=== PATIENT | male | born 1960 | race African-American/Black ===

== ENCOUNTER 2017-01-25 07:52 | Emergency (ER) | payer MEDICAID ==
[~2017-01-25] VITALS: Ht 177.8 cm; Wt 90.0 kg
[~2017-01-25 07:52] MED LIST: ATEN50TA PO; LISI-604 PO; RISP4 PO
[2017-01-25] MEDS ORDERED: PREDNISONE 20MG TABLET PO ONE (08:15)
[2017-01-25 08:20] LABS: BASOPHILS % 0.8 % (0.0-2.0); EOSINOPHILS % 0.8 % (0.0-5.0); HEMATOCRIT. 49.2 % (42.0-52.0); HEMOGLOBIN. 16.3 g/dL (14.0-18.0); MEAN CORPUSCULAR HEMOGLOBIN 30.1 pg (28.0-32.0); MEAN CORPUSCULAR HGB CONC 33.2 g/dL (31.0-37.0); MEAN CORPUSCULAR VOLUME 90.8 fL (80.0-94.0); NEUTROPHILS % 71.4 % (40.0-76.0); PLATELET 240 x1000/uL (130-400); RED BLOOD CELL COUNT 5.42 mill/uL (4.7-6.1); WHITE BLOOD COUNT 9.5 x1000/uL (4.5-11.0)
[2017-01-25 08:26] LABS: CHLORIDE 100 mEq/L (98-107); INDEX HEMOLYSI 1 (1-3); INDEX ICTERIC 1 (1-4); INDEX LIPEMIC 1 (1-3)
[2017-01-25 08:30] LABS: PARTIAL THROMBOPLASTIN TIME 25.3 sec (24.0-34.0); PROTHROMBIN TIME 10.7 sec
[2017-01-25 08:36] LABS: ALANINE AMINOTRANSFERASE 33 IU/L (13-61); ALBUMIN 2.9 g/dL (3.4-5.0); ANION GAP 14; CARBON DIOXIDE 28 mEq/L (21-32); NT PRO B-TYPE NATRIURETIC PEP 463 pg/mL (5-125); UREA NITROGEN BLOOD 13 mg/dL (7-21); eGFR > 60 mL/min (>60)
[2017-01-25 08:52] LABS: BG BASE EXCESS -0.9 mmol/L (-2.0-2.0); BG CARBOXYHEMOGLOBIN 1.7 % (0.5-1.5); BG FRACTION INSPIRED OXYGEN 28; BG HCO3 ACT 23.3 mmol/L (22.0-26.0); BG METHEMOGLOBIN 0.1 % (0.0-1.5); BG OXYGEN SATURATION 95.9 % (92.0-98.5); BG OXYHEMOGLOBIN 94.2 % (94.0-97.0); BG PCO2 37.6 mmHg (35.0-45.0); BG PO2 81.1 mmHg (75.0-100.0); BG SAMPLE SITE RIGHT BRACHIAL; BG TOTAL HEMOGLOBIN 16.5 g/dL (12.0-18.0); BG VENT MODE NASAL CANNULA
[2017-01-25 10:43] VITALS: BP 144/86
== END 2017-01-25 10:48 | disposition home or self-care (01) ==
LOC: ER 07:58
DX: J18.9 Pneumonia, unspecified organism (principal); I10 Essential (primary) hypertension; E11.9 Type 2 diabetes mellitus without complications; F41.9 Anxiety disorder, unspecified; F17.211 Nicotine dependence, cigarettes, in remission
CPT/HCPCS: 36415; 36600; 71010; 80053; 82375; 82805; 83880; 85025; 85610; 85730; 99285; J7512; Z7610

== ENCOUNTER 2018-01-03 01:23 | Inpatient (IN) | payer SELFPAY ==
[~2018-01-03] VITALS: Ht 180.3 cm; Wt 81.6 kg
[2018-01-03] MEDS ORDERED: METHYLPREDNISOLONE SOD SUCC 125 MG/2 ML VIAL IV STA (01:42)
[2018-01-03] MEDS ORDERED: ALBUTEROL (0.083%) 2.5MG/3ML NEB HHN STA (01:42)
[2018-01-03] MEDS ORDERED: IPRATROPIUM BROMIDE (0.02%) 0.5MG/2.5ML NEB HHN STA (01:42)
[2018-01-03] MEDS ORDERED: MAGNESIUM 2 G PREMIX 50 ML IV ONE (01:45)
[2018-01-03] MEDS ORDERED: LEVOFLOXACIN 750MG PREMIX 150 ML IV ONE (01:45)
[2018-01-03] MEDS ORDERED: ASPIRIN 81MG TABLET PO ONE (01:45)
[2018-01-03] MEDS ORDERED: NITROGLYCERIN OINT 1GM/INCH UDPKT TD ONE (01:45)
[2018-01-03] MEDS ORDERED: ACETAMINOPHEN 325MG TABLET PO ONE (02:15)
[2018-01-03 02:43] LABS: BASOPHILS % 0.5 % (0.0-2.0); EOSINOPHILS % 2.6 % (0.0-5.0); HEMATOCRIT. 51.7 % (42.0-52.0); HEMOGLOBIN. 17.1 g/dL (14.0-18.0); LYMPHOCYTES % 12.2 % (20.0-50.0); MEAN CORPUSCULAR VOLUME 87.6 fL (80.0-94.0); MEAN PLATELET VOLUME 8.6 fl (7.4-10.4); MONOCYTES % 13.8 % (2.0-8.0); NEUTROPHILS % 70.9 % (40.0-76.0); PLATELET 172 x1000/uL (130-400); RED CELL DISTRIBUTION WIDTH 14.7 % (11.6-14.6)
[2018-01-03 02:46] LABS: PROTHROMBIN TIME 10.8 sec (9.4-11.6)
[2018-01-03 02:49] LABS: CHLORIDE 105 mEq/L (98-107)
[2018-01-03 02:53] LABS: ETHANOL BLOOD < 10 mg/dL; TROPONIN I 0.04 ng/mL (0.00-0.04)
[2018-01-03] MEDS ORDERED: CLONIDINE 0.1MG TABLET PO PRN (09:00)
[2018-01-03] MEDS ORDERED: ZOLPIDEM TARTRATE 5MG TABLET PO PRN (09:00)
[2018-01-03] MEDS ORDERED: KETOROLAC 15MG/ML VIAL IV PRN (09:00)
[2018-01-03] MEDS ORDERED: LORAZEPAM 0.5MG TABLET PO PRN (09:00)
[2018-01-03] MEDS ORDERED: MAGNESIUM/ALUMINUM HYDROXIDE/SIMETHICONE 30ML UDC PO PRN (09:00)
[2018-01-03] MEDS ORDERED: DOCUSATE SODIUM 100MG CAPSULE PO PRN (09:00)
[2018-01-03] MEDS ORDERED: ACETAMINOPHEN 325MG TABLET PO PRN (09:00)
[2018-01-03] MEDS ORDERED: ONDANSETRON HCL 4MG/2ML VIAL IV PRN (09:00)
[2018-01-03] MEDS ORDERED: GUAIFENESIN 200MG/10ML SUGAR FREE UDC PO PRN (09:00)
[2018-01-03] MEDS ORDERED: NITROGLYCERIN 0.4MG TABLET SL SL PRN (09:00)
[2018-01-03] MEDS ORDERED: NA PHOS,M-B/NA PHOS,DI-BA ENEMA 118ML PR PRN (09:00)
[2018-01-03] MEDS ORDERED: IPRATROPIUM/ALBUTEROL 0.5-3(2.5)MG/3ML NEB INH PRN ×2 (09:00→12:15)
[2018-01-03] MEDS ORDERED: DIPHENHYDRAMINE 50MG/ML VIAL IV PRN (09:00)
[2018-01-03] MEDS ORDERED: GUAIFENESIN/DM 600MG/30MG ER TAB 12HR PO NR (13:00)
[2018-01-03] MEDS ORDERED: IPRATROPIUM/ALBUTEROL 0.5-3(2.5)MG/3ML NEB INH NR (13:00)
[2018-01-03 14:20] LABS: TROPONIN I 0.04 ng/mL (0.00-0.04)
[2018-01-03 14:21] LABS: CREATINE KINASE MB FRACTION 5.1 ng/mL (0.5-3.6)
[2018-01-03 16:00] VITALS: BP 149/100
[2018-01-03] MEDS ORDERED: ENOXAPARIN 40MG/0.4ML SYR SUBCUT SCH (17:00)
[2018-01-03] MEDS: METHYLPREDNISOLONE SOD SUCC 125 MG/2 ML VIAL IV SCH (17:49)
[2018-01-03] MEDS: GUAIFENESIN/DM 600MG/30MG ER TAB 12HR PO SCH (17:50)
[2018-01-03] MEDS: FAMOTIDINE 20MG/2ML VIAL IV SCH (20:18)
[2018-01-04] VITALS: BP 156/84
[2018-01-04 00:03] LABS: CREATINE KINASE MB FRACTION 5.1 ng/mL (0.5-3.6); TROPONIN I 0.07 ng/mL (0.00-0.04)
[2018-01-04] MEDS: METHYLPREDNISOLONE SOD SUCC 125 MG/2 ML VIAL IV SCH ×2 (03:36→09:11)
[2018-01-04 04:00] VITALS: BP 132/84
[2018-01-04] MEDS ORDERED: LEVOFLOXACIN 500MG PREMIX 100 ML IV SCH (06:00)
[2018-01-04] MEDS: GUAIFENESIN/DM 600MG/30MG ER TAB 12HR PO SCH (06:51)
[2018-01-04 08:00] VITALS: BP 137/84
[2018-01-04] MEDS: ASPIRIN 325MG EC TABLET PO SCH ×2 (09:11→09:12)
[2018-01-04] MEDS: FAMOTIDINE 20MG/2ML VIAL IV SCH (09:11)
[2018-01-04 12:00] VITALS: BP 143/72
[2018-01-04] MEDS ORDERED: INSULIN LISPRO 100 UNITS/ML SUBCUT NR (13:45)
[2018-01-04 13:54] VITALS: BP 137/81
== END 2018-01-04 14:55 | disposition home or self-care (01) | DRG 140 ==
LOC: ER 01:23 → 5WST 03:38 → EDBEDREQTM 03:44 → EDBEDREQ 03:44 → ENRESERV 14:12 → 5WST 15:53
PROVIDERS: ADMIT Internal Medicine; ATTEND Internal Medicine
DX: J44.0 Chronic obstructive pulmonary disease with (acute) lower respiratory infection (principal); J18.9 Pneumonia, unspecified organism; J44.1 Chronic obstructive pulmonary disease with (acute) exacerbation; E11.65 Type 2 diabetes mellitus with hyperglycemia; F17.200 Nicotine dependence, unspecified, uncomplicated; I10 Essential (primary) hypertension; Z79.899 Other long term (current) drug therapy
CPT/HCPCS: 36415; 71045; 80053; 80061; 82550; 82553; 82962; 83036; 83605; 83880; 84484; 85025; 85610; 87040; 87804; 93005; 93970; 94640; 96365; 96366; 96367; 96375; 99285; G0482; J1650; J1815; J1885; J1956; J2930; J3475; J3490; J7050; J7611; J7620

== ENCOUNTER 2018-05-29 02:37 | Emergency (ER) | payer MEDICAID ==
[~2018-05-29] VITALS: Ht 177.8 cm; Wt 77.1 kg
[2018-05-29] MEDS ORDERED: MAGNESIUM/ALUMINUM HYDROXIDE/SIMETHICONE 30ML UDC PO STA (06:42)
[2018-05-29] MEDS ORDERED: VISCOUS LIDOCAINE 2% 15 ML UDC PO STA (06:42)
[2018-05-29] MEDS ORDERED: FAMOTIDINE 20MG/2ML VIAL IV STA (06:42)
[2018-05-29] MEDS ORDERED: SODIUM CHLORIDE 0.9% 1,000 ML IV ONE (06:42)
[2018-05-29 08:21] LABS: BASOPHILS % 0.7 % (0.0-2.0); EOSINOPHILS % 0.9 % (0.0-5.0); LYMPHOCYTES % 23.6 % (20.0-50.0); MEAN CORPUSCULAR HEMOGLOBIN 30.7 pg (28.0-32.0); MEAN CORPUSCULAR VOLUME 90.4 fL (80.0-94.0); MONOCYTES % 11.4 % (2.0-8.0); NEUTROPHILS % 63.4 % (40.0-76.0); PLATELET 195 x1000/uL (130-400); RED BLOOD CELL COUNT 6.95 mill/uL (4.7-6.1); RED CELL DISTRIBUTION WIDTH 13.6 % (11.6-14.6)
[2018-05-29 08:23] LABS: CLARITY URINE CLEAR (CLEAR); COLOR URINE YELLOW (YELLOW); KETONES URINE 1+ (NEGATIVE); LEUKOCYTE ESTERASE URINE NEGATIVE (NEGATIVE); NITRITE URINE NEGATIVE (NEGATIVE); OCCULT BLOOD URINE TRACE (NEGATIVE); PROTEIN URINE 4+ (NEGATIVE); SPECIFIC GRAVITY URINE 1.033 (1.005-1.030)
[2018-05-29 08:24] LABS: CHLORIDE 102 mEq/L (98-107); HEMATOCRIT. 62.8 % (42.0-52.0); HEMOGLOBIN. 21.3 g/dL (14.0-18.0)
[2018-05-29 08:26] LABS: INR 1.1; PROTHROMBIN TIME 11.6 sec (9.4-11.6)
[2018-05-29 08:30] LABS: ETHANOL BLOOD < 10 mg/dL
[2018-05-29 08:53] LABS: *AMPHETAMINES SCREEN URINE NEGATIVE (NEGATIVE); *BARBITURATES SCREEN URINE NEGATIVE (NEGATIVE); *BENZODIAZEPINES SCREEN URINE NEGATIVE (NEGATIVE); *COCAINE SCREEN URINE NEGATIVE (NEGATIVE); METHADONE URINE SCREEN NEGATIVE (NEGATIVE)
[2018-05-29 08:54] LABS: CANNABINOID URINE SCREEN PRESUMTIVE POSITIVE (NEGATIVE); OPIATES URINE SCREEN NEGATIVE (NEGATIVE); PHENCYCLIDINE URINE SCREEN NEGATIVE (NEGATIVE)
[2018-05-29 15:18] VITALS: BP 165/92
== END 2018-05-29 15:21 | disposition home or self-care (01) ==
LOC: ER 02:37
DX: R10.9 Unspecified abdominal pain (principal); E11.9 Type 2 diabetes mellitus without complications; I10 Essential (primary) hypertension; Z98.890 Other specified postprocedural states
CPT/HCPCS: 36415; 71045; 74018; 74176; 76705; 80053; 80305; 81003; 83690; 84132; 84484; 85025; 85610; 93005; 96374; 99285; G0482; J3490; J7030; Z7610

== ENCOUNTER 2018-08-08 04:24 | Inpatient (IN) | payer MEDICAID ==
[~2018-08-08] VITALS: Ht 177.8 cm; Wt 79.4 kg
[2018-08-08] MEDS ORDERED: IPRATROPIUM BROMIDE (0.02%) 0.5MG/2.5ML NEB HHN STA (06:10)
[2018-08-08] MEDS ORDERED: METHYLPREDNISOLONE SOD SUCC 125 MG/2 ML VIAL IV STA (06:10)
[2018-08-08] MEDS ORDERED: ALBUTEROL (0.083%) 2.5MG/3ML NEB HHN STA (06:10)
[2018-08-08 07:33] LABS: BASOPHILS % 0.9 % (0.0-2.0); EOSINOPHILS % 1.4 % (0.0-5.0); HEMOGLOBIN. 17.8 g/dL (14.0-18.0); MEAN CORPUSCULAR HEMOGLOBIN 31.5 pg (28.0-32.0); MEAN CORPUSCULAR VOLUME 92.2 fL (80.0-94.0); MEAN PLATELET VOLUME 8.9 fl (7.4-10.4); MONOCYTES % 12.2 % (2.0-8.0); NEUTROPHILS % 58.5 % (40.0-76.0); PLATELET 174 x1000/uL (130-400); RED BLOOD CELL COUNT 5.64 mill/uL (4.7-6.1); RED CELL DISTRIBUTION WIDTH 14.2 % (11.6-14.6)
[2018-08-08 07:41] LABS: INR 1.1; PARTIAL THROMBOPLASTIN TIME 25.4 sec (23.4-31.0); PROTHROMBIN TIME 10.7 sec (9.1-11.1)
[2018-08-08 07:58] LABS: CHLORIDE 106 mEq/L (98-107)
[2018-08-08] MEDS ORDERED: LEVOFLOXACIN 500MG PREMIX 100 ML IV ONE (08:30)
[2018-08-08] MEDS ORDERED: FUROSEMIDE 20MG/2ML VIAL IVP ONE (08:30)
[2018-08-08] MEDS ORDERED: IPRATROPIUM/ALBUTEROL 0.5-3(2.5)MG/3ML NEB HHN PRN (09:15)
[2018-08-08] MEDS ORDERED: DEXTROSE 50% WATER 50ML SYRINGE IV PRN (09:15)
[2018-08-08] MEDS ORDERED: CLONIDINE 0.1MG TABLET PO PRN (09:15)
[2018-08-08] MEDS ORDERED: LEVOFLOXACIN 250MG TABLET PO SCH (11:00)
[2018-08-08] MEDS: INSULIN LISPRO 100 UNITS/ML SUBCUT SCH ×2 (16:16→23:21)
[2018-08-08] MEDS ORDERED: MORPHINE SULFATE 4 MG/ML CPJ (NOT FOR IM USE) IV PRN (19:00)
[2018-08-08] MEDS: METFORMIN HCL 500MG TABLET PO SCH (19:29)
[2018-08-08 21:00] VITALS: BP 162/96
[2018-08-08] MEDS: BLOOD SUGAR DIAGNOSTIC STRIP TEST SCH (21:00)
[2018-08-08] MEDS ORDERED: INSULIN GLARGINE UD 100 UNITS/ML SYR SUBCUT SCH (22:00)
[2018-08-08] MEDS: MONTELUKAST SODIUM 10MG TABLET PO SCH (23:28)
[2018-08-09] VITALS: BP 150/76
[2018-08-09 04:00] VITALS: BP 150/84
[2018-08-09 06:25] LABS: BASOPHILS % 0.1 % (0.0-2.0); EOSINOPHILS % 0.1 % (0.0-5.0); HEMOGLOBIN. 17.1 g/dL (14.0-18.0); LYMPHOCYTES % 9.9 % (20.0-50.0); MEAN CORPUSCULAR HEMOGLOBIN 31.4 pg (28.0-32.0); MEAN PLATELET VOLUME 9.7 fl (7.4-10.4); MONOCYTES % 9.9 % (2.0-8.0); PLATELET 199 x1000/uL (130-400); RED BLOOD CELL COUNT 5.44 mill/uL (4.7-6.1); RED CELL DISTRIBUTION WIDTH 14.2 % (11.6-14.6)
[2018-08-09] MEDS: OMEPRAZOLE 20MG CAPSULE EXTENDED RELEASE PO SCH (06:53)
[2018-08-09] MEDS: INSULIN LISPRO 100 UNITS/ML SUBCUT SCH ×4 (06:55→21:28)
[2018-08-09] MEDS: BLOOD SUGAR DIAGNOSTIC STRIP TEST SCH ×4 (07:14→21:12)
[2018-08-09 07:40] VITALS: BP 134/79
[2018-08-09] MEDS: FUROSEMIDE 40MG/4ML VIAL IVP SCH (08:31)
[2018-08-09] MEDS: METFORMIN HCL 500MG TABLET PO SCH ×2 (08:31→16:56)
[2018-08-09] MEDS: DOCUSATE SODIUM 250MG CAPSULE PO SCH (08:31)
[2018-08-09] MEDS ORDERED: AMLODIPINE 5MG TABLET PO SCH (09:00)
[2018-08-09] MEDS ORDERED: FUROSEMIDE 20MG TABLET PO SCH (09:00)
[2018-08-09 09:38] LABS: CHLORIDE 106 mEq/L (98-107)
[2018-08-09] MEDS: CLOPIDOGREL 75MG TABLET PO SCH (11:53)
[2018-08-09] MEDS: ENOXAPARIN 40MG/0.4ML SYR SUBCUT SCH (11:53)
[2018-08-09 12:00] VITALS: BP 137/69
[2018-08-09] MEDS: INSULIN GLARGINE UD 100 UNITS/ML SYR SUBCUT SCH ×2 (13:37→21:28)
[2018-08-09 16:00] VITALS: BP 137/77
[2018-08-09] MEDS: MONTELUKAST SODIUM 10MG TABLET PO SCH (16:56)
[2018-08-09] MEDS: AMLODIPINE 5MG TABLET PO SCH (16:56)
[2018-08-09 17:27] LABS: CLARITY URINE CLEAR (CLEAR); COLOR URINE YELLOW (YELLOW); KETONES URINE NEGATIVE (NEGATIVE); LEUKOCYTE ESTERASE URINE NEGATIVE (NEGATIVE); NITRITE URINE NEGATIVE (NEGATIVE); OCCULT BLOOD URINE NEGATIVE (NEGATIVE); PH URINE 5.5 (4.5-8.0); PROTEIN URINE 2+ (NEGATIVE); SPECIFIC GRAVITY URINE 1.016 (1.005-1.030)
[2018-08-09 17:37] LABS: ETHANOL BLOOD < 10 mg/dL
[2018-08-09 17:43] LABS: *AMPHETAMINES SCREEN URINE NEGATIVE (NEGATIVE); *BARBITURATES SCREEN URINE NEGATIVE (NEGATIVE); CANNABINOID URINE SCREEN NEGATIVE (NEGATIVE); METHADONE URINE SCREEN NEGATIVE (NEGATIVE)
[2018-08-09 17:45] LABS: *BENZODIAZEPINES SCREEN URINE NEGATIVE (NEGATIVE); *COCAINE SCREEN URINE NEGATIVE (NEGATIVE); OPIATES URINE SCREEN PRESUMTIVE POSITIVE (NEGATIVE); PHENCYCLIDINE URINE SCREEN NEGATIVE (NEGATIVE)
[2018-08-09 17:48] LABS: HDL CHOLESTEROL 51 mg/dL (40-59); LDL CHOLESTEROL 106 mg/dL (5-100); T4 FREE 1.08 ng/dL (0.76-1.46)
[2018-08-09 18:16] LABS: FOLIC ACID (FOLATE) SERUM 13.4 ng/mL (>5.38)
[2018-08-09 19:54] VITALS: BP 129/79
[2018-08-09] MEDS: ATORVASTATIN CALCIUM 40MG TABLET PO SCH (21:24)
[2018-08-10] VITALS: BP 123/80
[2018-08-10 04:00] VITALS: BP 128/74
[2018-08-10 06:46] LABS: BASOPHILS % 0.3 % (0.0-2.0); EOSINOPHILS % 1.3 % (0.0-5.0); HEMOGLOBIN. 17.9 g/dL (14.0-18.0); LYMPHOCYTES % 27.5 % (20.0-50.0); MEAN CORPUSCULAR HEMOGLOBIN 31.3 pg (28.0-32.0); MEAN CORPUSCULAR VOLUME 92.8 fL (80.0-94.0); MEAN PLATELET VOLUME 9.7 fl (7.4-10.4); MONOCYTES % 10.8 % (2.0-8.0); NEUTROPHILS % 60.1 % (40.0-76.0); PLATELET 193 x1000/uL (130-400); RED BLOOD CELL COUNT 5.71 mill/uL (4.7-6.1); RED CELL DISTRIBUTION WIDTH 14.5 % (11.6-14.6)
[2018-08-10] MEDS: BLOOD SUGAR DIAGNOSTIC STRIP TEST SCH ×4 (07:00→21:34)
[2018-08-10] MEDS: INSULIN LISPRO 100 UNITS/ML SUBCUT SCH ×4 (07:00→21:43)
[2018-08-10] MEDS: IPRATROPIUM/ALBUTEROL 0.5-3(2.5)MG/3ML NEB HHN SCH ×4 (07:25→20:53)
[2018-08-10] MEDS: BUDESONIDE 0.5MG/2ML NEB HHN SCH ×2 (07:25→20:53)
[2018-08-10] MEDS: OMEPRAZOLE 20MG CAPSULE EXTENDED RELEASE PO SCH (07:29)
[2018-08-10 08:00] VITALS: BP 112/79
[2018-08-10] MEDS: FUROSEMIDE 40MG/4ML VIAL IVP SCH (08:24)
[2018-08-10] MEDS: AMLODIPINE 5MG TABLET PO SCH ×2 (08:24→17:17)
[2018-08-10] MEDS: METFORMIN HCL 500MG TABLET PO SCH ×2 (08:24→17:11)
[2018-08-10] MEDS: CLOPIDOGREL 75MG TABLET PO SCH (08:24)
[2018-08-10] MEDS: DOCUSATE SODIUM 250MG CAPSULE PO SCH (08:25)
[2018-08-10] MEDS: ENOXAPARIN 40MG/0.4ML SYR SUBCUT SCH (08:28)
[2018-08-10 08:34] LABS: CHLORIDE 105 mEq/L (98-107)
[2018-08-10] MEDS ORDERED: MAGNESIUM 2 G PREMIX 50 ML IV ONE (11:00)
[2018-08-10 12:00] VITALS: BP 102/65
[2018-08-10] MEDS: INSULIN GLARGINE UD 100 UNITS/ML SYR SUBCUT SCH ×2 (12:25→21:43)
[2018-08-10] MEDS ORDERED: MAGNESIUM SULFATE 2 GM in DEXTROSE 5% WATER 50 ML IV NR (12:30)
[2018-08-10 16:00] VITALS: BP 117/72
[2018-08-10] MEDS: MONTELUKAST SODIUM 10MG TABLET PO SCH (17:09)
[2018-08-10 20:00] VITALS: BP 139/79
[2018-08-10] MEDS: ATORVASTATIN CALCIUM 40MG TABLET PO SCH (21:40)
[2018-08-11] VITALS: BP 105/53
[2018-08-11] MEDS: IPRATROPIUM/ALBUTEROL 0.5-3(2.5)MG/3ML NEB HHN SCH ×6 (01:07→20:59)
[2018-08-11 04:00] VITALS: BP 138/64
[2018-08-11] MEDS: BLOOD SUGAR DIAGNOSTIC STRIP TEST SCH ×3 (06:38→17:45)
[2018-08-11] MEDS: INSULIN LISPRO 100 UNITS/ML SUBCUT SCH ×3 (06:44→17:40)
[2018-08-11 06:49] LABS: BASOPHILS % 0.4 % (0.0-2.0); EOSINOPHILS % 1.5 % (0.0-5.0); HEMATOCRIT. 52.3 % (42.0-52.0); HEMOGLOBIN. 17.6 g/dL (14.0-18.0); LYMPHOCYTES % 31.6 % (20.0-50.0); MEAN CORPUSCULAR HEMOGLOBIN 31.1 pg (28.0-32.0); MEAN CORPUSCULAR VOLUME 92.4 fL (80.0-94.0); MEAN PLATELET VOLUME 9.4 fl (7.4-10.4); NEUTROPHILS % 53.5 % (40.0-76.0); PLATELET 195 x1000/uL (130-400); RED BLOOD CELL COUNT 5.66 mill/uL (4.7-6.1); RED CELL DISTRIBUTION WIDTH 13.9 % (11.6-14.6)
[2018-08-11 07:22] LABS: CHLORIDE 104 mEq/L (98-107)
[2018-08-11 08:00] VITALS: BP 148/99
[2018-08-11] MEDS ORDERED: FAMOTIDINE 20MG TABLET PO SCH (09:00)
[2018-08-11] MEDS: DOCUSATE SODIUM 250MG CAPSULE PO SCH (09:17)
[2018-08-11] MEDS: FUROSEMIDE 40MG/4ML VIAL IVP SCH (09:17)
[2018-08-11] MEDS: METFORMIN HCL 500MG TABLET PO SCH ×2 (09:17→17:45)
[2018-08-11] MEDS: ENOXAPARIN 40MG/0.4ML SYR SUBCUT SCH (09:17)
[2018-08-11] MEDS: CLOPIDOGREL 75MG TABLET PO SCH (09:17)
[2018-08-11] MEDS: INSULIN GLARGINE UD 100 UNITS/ML SYR SUBCUT SCH (09:18)
[2018-08-11] MEDS: AMLODIPINE 5MG TABLET PO SCH ×2 (09:18→17:45)
[2018-08-11 11:57] VITALS: BP 147/90
[2018-08-11] MEDS ORDERED: METOPROLOL TARTRATE 25MG TABLET PO SCH (14:30)
[2018-08-11] MEDS ORDERED: BUDESONIDE 0.5MG/2ML NEB HHN SCH (15:00)
[2018-08-11] MEDS: BUDESONIDE 0.5MG/2ML NEB HHN SCH (17:04)
[2018-08-11] MEDS: MONTELUKAST SODIUM 10MG TABLET PO SCH (17:45)
[2018-08-11] MEDS ORDERED: MONT10TA21 MT (19:00)
[2018-08-11] MEDS ORDERED: METF500T6 MT (19:00)
[2018-08-11] MEDS ORDERED: AMLO5TAB88 MT (19:00)
[2018-08-11] MEDS ORDERED: METO-385 MT (19:00)
[2018-08-11] MEDS ORDERED: LIP40 MT (19:00)
[2018-08-11] MEDS ORDERED: CLOP75TA16 MT (19:00)
[2018-08-11] MEDS ORDERED: FURO40TA5 MT (19:00)
[2018-08-11] MEDS ORDERED: FLUT1DIS2 INH (19:01)
[2018-08-11] MEDS ORDERED: ALBU18HF2 IH (19:01)
[2018-08-11 20:40] VITALS: BP 116/59
[2018-08-12 13:11] LABS: ANTI-THROMBIN ACTIVITY 122 % (75-135); DRVVT LA 40.1 sec (0.0-47.0); LUPUS ANTICOAG INTERPRETATION Comment: (.); PROTEIN C FUNCTIONAL 123 % (73-180); PTT-LA 32.7 sec (0.0-51.9)
[2018-08-13 06:14] LABS: ANTI-CARDIOLIPIN AB IGA < 9 APL U/mL (0-11); ANTI-CARDIOLIPIN AB IGG < 9 GPL U/mL (0-14); ANTI-CARDIOLIPIN AB IGM < 9 MPL U/mL (0-12)
== END 2018-08-11 21:45 | disposition home or self-care (01) | DRG 45 ==
LOC: ER 04:24 → 8WST 08:25 → ENRESERV 18:54
PROVIDERS: ADMIT Internal Medicine; ATTEND Internal Medicine
DX: I63.9 Cerebral infarction, unspecified (principal); J96.00 Acute respiratory failure, unspecified whether with hypoxia or hypercapnia; E43 Unspecified severe protein-calorie malnutrition; I50.43 Acute on chronic combined systolic (congestive) and diastolic (congestive) heart failure; J18.9 Pneumonia, unspecified organism; J45.901 Unspecified asthma with (acute) exacerbation; E83.42 Hypomagnesemia; I11.0 Hypertensive heart disease with heart failure; E78.00 Pure hypercholesterolemia, unspecified; G81.91 Hemiplegia, unspecified affecting right dominant side; R94.31 Abnormal electrocardiogram [ECG] [EKG]; R47.1 Dysarthria and anarthria; F17.210 Nicotine dependence, cigarettes, uncomplicated; E11.65 Type 2 diabetes mellitus with hyperglycemia; R47.81 Slurred speech; Z68.25 Body mass index [BMI] 25.0-25.9, adult; Z82.49 Family history of ischemic heart disease and other diseases of the circulatory system; Z86.14 Personal history of Methicillin resistant Staphylococcus aureus infection; Z86.711 Personal history of pulmonary embolism; Z79.899 Other long term (current) drug therapy
CPT/HCPCS: 36415; 70450; 70551; 71045; 80048; 80053; 80061; 80076; 80305; 81003; 81400; 81403; 81407; 81479; 82040; 82607; 82746; 82962; 83036; 83605; 83735; 83880; 84145; 84439; 84443; 84481; 84484; 85025; 85300; 85303; 85306; 85379; 85610; 85613; 85730; 85732; 86147; 87040; 92610; 93005; 93306; 93880; 93970; 94640; 94644; 96374; 97116; 97162; 97166; 99291; G0482; J1650; J1815; J1940; J1956; J2270; J2930; J3475; J7050; J7060; J7611; J7620; J7626

== ENCOUNTER 2019-02-14 14:01 | Inpatient (IN) | payer MEDICAID ==
[~2019-02-14] VITALS: Ht 172.7 cm; Wt 77.1 kg
[~2019-02-14 14:01] MED LIST changes: +ALBU18HF2 IH; +AMLO5TAB88 MT; -ATEN50TA PO; +CLOP75TA16 MT; +FLUT1DIS2 INH; +FURO40TA5 MT; +LIP40 MT; -LISI-604 PO; +METF-414 MT; +METO-385 MT; +MONT10TA21 MT; -RISP4 PO
[2019-02-14] MEDS ORDERED: ONDANSETRON HCL 4MG/2ML INJ IV STA (14:18)
[2019-02-14] MEDS ORDERED: SODIUM CHLORIDE 0.9% 1,000 ML IV ONE (14:18)
[2019-02-14] MEDS ORDERED: MORPHINE SULFATE 4 MG/ML CPJ (NOT FOR IM USE) IV STA (14:18)
[2019-02-14] MEDS ORDERED: FAMOTIDINE 20MG/2ML VIAL IV STA (14:18)
[2019-02-14 14:58] LABS: CHLORIDE 95 mEq/L (98-107)
[2019-02-14 15:02] LABS: ETHANOL BLOOD < 10 mg/dL
[2019-02-14 15:04] LABS: CLARITY URINE CLEAR (CLEAR); COLOR URINE YELLOW (YELLOW); KETONES URINE 1+ (NEGATIVE); LEUKOCYTE ESTERASE URINE NEGATIVE (NEGATIVE); NITRITE URINE NEGATIVE (NEGATIVE); OCCULT BLOOD URINE NEGATIVE (NEGATIVE); PROTEIN URINE 2+ (NEGATIVE); UROBILINOGEN URINE 0.2 E.U./dL (0.2-1.0)
[2019-02-14 15:16] LABS: BASOPHILS % 0.6 % (0.0-2.0); EOSINOPHILS % 1.4 % (0.0-5.0); HEMATOCRIT. 55.8 % (42.0-52.0); HEMOGLOBIN. 19.3 g/dL (14.0-18.0); LYMPHOCYTES % 33.6 % (20.0-50.0); MEAN CORPUSCULAR HEMOGLOBIN 30.5 pg (28.0-32.0); MEAN CORPUSCULAR VOLUME 88.2 fL (80.0-94.0); MEAN PLATELET VOLUME 8.6 fl (7.4-10.4); MONOCYTES % 10.8 % (2.0-8.0); NEUTROPHILS % 53.6 % (40.0-76.0); PLATELET 254 x1000/uL (130-400); RED BLOOD CELL COUNT 6.33 mill/uL (4.7-6.1); RED CELL DISTRIBUTION WIDTH 13.3 % (11.6-14.6)
[2019-02-14 15:17] LABS: *AMPHETAMINES SCREEN URINE NEGATIVE (NEGATIVE); *BARBITURATES SCREEN URINE NEGATIVE (NEGATIVE); *BENZODIAZEPINES SCREEN URINE NEGATIVE (NEGATIVE); *COCAINE SCREEN URINE NEGATIVE (NEGATIVE)
[2019-02-14 15:19] LABS: CANNABINOID URINE SCREEN NEGATIVE (NEGATIVE); METHADONE URINE SCREEN NEGATIVE (NEGATIVE); OPIATES URINE SCREEN NEGATIVE (NEGATIVE); PHENCYCLIDINE URINE SCREEN NEGATIVE (NEGATIVE)
[2019-02-14 15:39] LABS: AMYLASE 95 IU/L (25-115)
[2019-02-14] MEDS ORDERED: MORPHINE SULFATE 4 MG/ML CPJ (NOT FOR IM USE) IV ONE (17:00)
[2019-02-14] MEDS ORDERED: ONDANSETRON HCL 4MG/2ML INJ IV ONE (17:00)
[2019-02-14] MEDS ORDERED: DIPHENHYDRAMINE 50MG/ML VIAL IV PRN (17:30)
[2019-02-14] MEDS ORDERED: IPRATROPIUM/ALBUTEROL 0.5-3(2.5)MG/3ML NEB INH PRN (17:30)
[2019-02-14] MEDS ORDERED: MAGNESIUM/ALUMINUM HYDROXIDE/SIMETHICONE 30ML UDC PO PRN (17:30)
[2019-02-14] MEDS ORDERED: CLONIDINE 0.1MG TABLET PO PRN (17:30)
[2019-02-14] MEDS ORDERED: GUAIFENESIN 200MG/10ML SUGAR FREE UDC PO PRN (17:30)
[2019-02-14] MEDS ORDERED: ACETAMINOPHEN 325MG TABLET PO PRN (17:30)
[2019-02-14] MEDS ORDERED: ONDANSETRON HCL 4MG/2ML INJ IV PRN (17:30)
[2019-02-14 18:44] LABS: PHOSPHORUS 3.5 mg/dL (2.5-4.9)
[2019-02-14] MEDS: SODIUM CHLORIDE 0.9% 1,000 ML IV SCH (18:44)
[2019-02-14 21:28] VITALS: BP 133/87
[2019-02-14 21:30] VITALS: BP 133/84
[2019-02-14 22:00] VITALS: BP 133/87
[2019-02-14 23:10] LABS: CREATINE KINASE MB FRACTION 1.9 ng/mL (0.5-3.6)
[2019-02-15] VITALS: BP 142/98
[2019-02-15 04:00] VITALS: BP 154/86
[2019-02-15 06:05] LABS: BASOPHILS % 0.5 % (0.0-2.0); EOSINOPHILS % 2.1 % (0.0-5.0); HEMATOCRIT. 50.4 % (42.0-52.0); HEMOGLOBIN. 17.2 g/dL (14.0-18.0); LYMPHOCYTES % 30.7 % (20.0-50.0); MEAN CORPUSCULAR HEMOGLOBIN 30.4 pg (28.0-32.0); MEAN PLATELET VOLUME 8.4 fl (7.4-10.4); MONOCYTES % 14.2 % (2.0-8.0); NEUTROPHILS % 52.5 % (40.0-76.0); PLATELET 219 x1000/uL (130-400); RED BLOOD CELL COUNT 5.66 mill/uL (4.7-6.1); RED CELL DISTRIBUTION WIDTH 13.3 % (11.6-14.6)
[2019-02-15 06:33] LABS: CHLORIDE 103 mEq/L (98-107)
[2019-02-15 06:46] LABS: LDL CHOLESTEROL 48 mg/dL (5-100)
[2019-02-15 06:47] LABS: CREATINE KINASE 84 IU/L (39-308); HDL CHOLESTEROL 33 mg/dL (40-59)
[2019-02-15 08:00] VITALS: BP 148/80
[2019-02-15] MEDS ORDERED: DEXTROSE 50% WATER 50ML SYRINGE IV PRN (08:00)
[2019-02-15] MEDS: METFORMIN HCL 500MG TABLET PO SCH ×2 (09:36→17:29)
[2019-02-15] MEDS: CLOPIDOGREL 75MG TABLET PO SCH (09:37)
[2019-02-15] MEDS: AMLODIPINE 5MG TABLET PO SCH ×2 (09:39→21:24)
[2019-02-15] MEDS: FUROSEMIDE 40MG/4ML VIAL IVP SCH (09:41)
[2019-02-15] MEDS: MORPHINE SULFATE 4 MG/ML CPJ (NOT FOR IM USE) IV PRN ×3 (09:42→23:40)
[2019-02-15] MEDS: SODIUM CHLORIDE 0.9% 1,000 ML IV SCH (09:43)
[2019-02-15 12:00] VITALS: BP 139/78
[2019-02-15] MEDS: INSULIN LISPRO 100 UNITS/ML SUBCUT SCH ×3 (12:05→21:44)
[2019-02-15] MEDS: BLOOD SUGAR DIAGNOSTIC STRIP TEST SCH ×3 (12:05→21:23)
[2019-02-15 16:00] VITALS: BP 150/81
[2019-02-15] MEDS: DOCUSATE SODIUM 100MG CAPSULE PO PRN (17:29)
[2019-02-15 20:00] VITALS: BP 141/82
[2019-02-15] MEDS ORDERED: ATORVASTATIN CALCIUM 40MG TABLET PO SCH (21:00)
[2019-02-15] MEDS ORDERED: MONTELUKAST SODIUM 10MG TABLET PO SCH (21:00)
[2019-02-16] VITALS (7 sets, daily range): BP systolic 110–162; BP diastolic 71–95
[2019-02-16] MEDS: BLOOD SUGAR DIAGNOSTIC STRIP TEST SCH ×2 (06:43→12:59)
[2019-02-16 07:29] LABS: HEMATOCRIT 50.6 % (42.0-52.0); HEMOGLOBIN 17.1 g/dL (14.0-18.0); MEAN CORPUSCULAR HEMOGLOBIN 29.8 pg (28.0-32.0); PLATELET 229 x1000/uL (130-400); RED BLOOD CELL COUNT 5.74 mill/uL (4.7-6.1); RED CELL DISTRIBUTION WIDTH 13.1 % (11.6-14.6)
[2019-02-16 07:32] LABS: CHLORIDE 103 mEq/L (98-107)
[2019-02-16] MEDS: INSULIN LISPRO 100 UNITS/ML SUBCUT SCH ×2 (07:40→13:11)
[2019-02-16] MEDS: CLOPIDOGREL 75MG TABLET PO SCH (08:26)
[2019-02-16] MEDS: METFORMIN HCL 500MG TABLET PO SCH (08:27)
[2019-02-16] MEDS: AMLODIPINE 5MG TABLET PO SCH (08:27)
[2019-02-16] MEDS: FUROSEMIDE 40MG/4ML VIAL IVP SCH (08:27)
[2019-02-16] MEDS: MORPHINE SULFATE 4 MG/ML CPJ (NOT FOR IM USE) IV PRN ×2 (10:37→15:45)
[2019-02-16] MEDS ORDERED: LACTULOSE 20G/30ML UDC PO PRN (11:30)
[2019-02-16] MEDS ORDERED: BISACODYL 5MG TABLET PO NR (11:30)
[2019-02-16] MEDS: DOCUSATE SODIUM 100MG CAPSULE PO PRN (13:08)
[2019-02-16] MEDS ORDERED: POLY119P2 MT (15:05)
== END 2019-02-16 18:50 | disposition home or self-care (01) | DRG 282 ==
LOC: ER 14:01 → EDBEDREQ 16:37 → EDBEDREQTM 16:37 → 8WST 16:37 → ENRESERV 20:06
PROVIDERS: ADMIT Internal Medicine; ATTEND Internal Medicine
DX: K85.90 Acute pancreatitis without necrosis or infection, unspecified (principal); I69.351 Hemiplegia and hemiparesis following cerebral infarction affecting right dominant side; E11.9 Type 2 diabetes mellitus without complications; I10 Essential (primary) hypertension; R74.0 Nonspecific elevation of levels of transaminase and lactic acid dehydrogenase [LDH]; K59.00 Constipation, unspecified; F17.200 Nicotine dependence, unspecified, uncomplicated; Z79.84 Long term (current) use of oral hypoglycemic drugs; Z79.899 Other long term (current) drug therapy
CPT/HCPCS: 36415; 71045; 74176; 76705; 80048; 80061; 80076; 80305; 80320; 82150; 82550; 82553; 82962; 83036; 83615; 83735; 84100; 84443; 85027; 93005; 93970; 96374; 96375; 96376; 97162; 97166; 97535; 99291; J1815; J1940; J2270; J2405; J3490; J7030; G0480

== ENCOUNTER 2019-07-31 18:48 | Inpatient (IN) | payer MEDICAID, OTHER ==
[~2019-07-31] VITALS: Ht 172.7 cm; Wt 81.7 kg
[~2019-07-31 18:48] MED LIST changes: -CLOP75TA16 MT; +CLOP75TA4 MT; -LIP40 MT; +POLY119P2 MT
[2019-07-31] MEDS ORDERED: ONDANSETRON HCL 4MG/2ML INJ IV STA (19:11)
[2019-07-31] MEDS ORDERED: KETOROLAC 30MG/ML VIAL IV STA (19:11)
[2019-07-31] MEDS ORDERED: SODIUM CHLORIDE 0.9% 1,000 ML IV ONE (19:11)
[2019-07-31 19:38] LABS: BASOPHILS % 0.6 % (0.0-2.0); EOSINOPHILS % 1.8 % (0.0-5.0); HEMATOCRIT. 55.9 % (42.0-52.0); HEMOGLOBIN. 18.8 g/dL (14.0-18.0); LYMPHOCYTES % 26.7 % (20.0-50.0); MEAN CORPUSCULAR HEMOGLOBIN 29.7 pg (28.0-32.0); MEAN CORPUSCULAR VOLUME 88.2 fL (80.0-94.0); MEAN PLATELET VOLUME 8.6 fl (7.4-10.4); MONOCYTES % 11.5 % (2.0-8.0); NEUTROPHILS % 59.4 % (40.0-76.0); PLATELET 213 x1000/uL (130-400); RED BLOOD CELL COUNT 6.33 mill/uL (4.7-6.1); RED CELL DISTRIBUTION WIDTH 13.6 % (11.6-14.6)
[2019-07-31 19:43] LABS: CHLORIDE 100 mEq/L (98-107)
[2019-07-31 19:47] LABS: ETHANOL BLOOD < 10 mg/dL
[2019-07-31] MEDS ORDERED: MORPHINE SULFATE 4 MG/ML CPJ (NOT FOR IM USE) IV ONE (20:45)
[2019-07-31 21:13] LABS: *AMPHETAMINES SCREEN URINE NEGATIVE (NEGATIVE); *BARBITURATES SCREEN URINE NEGATIVE (NEGATIVE); *BENZODIAZEPINES SCREEN URINE NEGATIVE (NEGATIVE); *COCAINE SCREEN URINE NEGATIVE (NEGATIVE); METHADONE URINE SCREEN NEGATIVE (NEGATIVE); OPIATES URINE SCREEN PRESUMTIVE POSITIVE (NEGATIVE)
[2019-07-31 21:14] LABS: CANNABINOID URINE SCREEN PRESUMTIVE POSITIVE (NEGATIVE); PHENCYCLIDINE URINE SCREEN NEGATIVE (NEGATIVE)
[2019-08-01 02:10] VITALS: BP 153/91
[2019-08-01] MEDS ORDERED: ONDANSETRON HCL 4MG/2ML INJ IV PRN (02:30)
[2019-08-01] MEDS ORDERED: DEXTROSE 50% WATER 50ML SYRINGE IV PRN (02:30)
[2019-08-01] MEDS: MORPHINE SULFATE 2 MG/ML CPJ (NOT FOR IM USE) IV PRN ×5 (03:13→22:00)
[2019-08-01 04:00] VITALS: BP 164/90
[2019-08-01] MEDS: BLOOD SUGAR DIAGNOSTIC STRIP TEST SCH ×4 (06:00→20:39)
[2019-08-01] MEDS: DEXT 5%/0.45% NACL KCL 20MEQ/L 1,000 ML IV SCH ×2 (06:00→12:50)
[2019-08-01] MEDS: INSULIN LISPRO 100 UNITS/ML SUBCUT SCH ×4 (06:12→20:39)
[2019-08-01 07:04] LABS: BASOPHILS % 0.3 % (0.0-2.0); EOSINOPHILS % 1.6 % (0.0-5.0); HEMATOCRIT. 53.2 % (42.0-52.0); HEMOGLOBIN. 18.1 g/dL (14.0-18.0); LYMPHOCYTES % 25.7 % (20.0-50.0); MEAN CORPUSCULAR VOLUME 88.1 fL (80.0-94.0); MEAN PLATELET VOLUME 9.1 fl (7.4-10.4); MONOCYTES % 11.2 % (2.0-8.0); NEUTROPHILS % 61.2 % (40.0-76.0); PLATELET 202 x1000/uL (130-400); RED BLOOD CELL COUNT 6.03 mill/uL (4.7-6.1); RED CELL DISTRIBUTION WIDTH 13.4 % (11.6-14.6)
[2019-08-01 07:10] LABS: CHLORIDE 102 mEq/L (98-107)
[2019-08-01 07:27] LABS: AMYLASE 74 IU/L (25-115)
[2019-08-01 07:30] LABS: LDL CHOLESTEROL 61 mg/dL (5-100)
[2019-08-01 07:33] LABS: HDL CHOLESTEROL 37 mg/dL (40-59)
[2019-08-01] MEDS: PANTOPRAZOLE SODIUM 40 MG/VIAL IV SCH (08:49)
[2019-08-01 20:00] VITALS: BP 129/70
[2019-08-01] MEDS: AMLODIPINE 5MG TABLET PO SCH (20:38)
[2019-08-02] VITALS: BP 128/78
[2019-08-02 04:00] VITALS: BP 142/87
[2019-08-02] MEDS: DEXT 5%/0.45% NACL KCL 20MEQ/L 1,000 ML IV SCH (06:07)
[2019-08-02] MEDS: BLOOD SUGAR DIAGNOSTIC STRIP TEST SCH (07:39)
[2019-08-02] MEDS: INSULIN LISPRO 100 UNITS/ML SUBCUT SCH (07:39)
[2019-08-02 08:00] VITALS: BP 154/87
[2019-08-02] MEDS: AMLODIPINE 5MG TABLET PO SCH (08:25)
[2019-08-02] MEDS: PANTOPRAZOLE SODIUM 40 MG/VIAL IV SCH (08:26)
[2019-08-02 08:57] VITALS: BP 154/87
== END 2019-08-02 09:16 | disposition home or self-care (01) | DRG 282 ==
LOC: ER 18:48 → 8WST 08-01 00:02 → ENRESERV 08-01 01:14
PROVIDERS: ADMIT Internal Medicine; ATTEND Internal Medicine
DX: K85.90 Acute pancreatitis without necrosis or infection, unspecified (principal); E87.1 Hypo-osmolality and hyponatremia; E11.9 Type 2 diabetes mellitus without complications; I10 Essential (primary) hypertension; F12.90 Cannabis use, unspecified, uncomplicated; Z86.73 Personal history of transient ischemic attack (TIA), and cerebral infarction without residual deficits; Z79.899 Other long term (current) drug therapy; Z79.84 Long term (current) use of oral hypoglycemic drugs
CPT/HCPCS: 36415; 71045; 74176; 80048; 80061; 80076; 80305; 80320; 82150; 82962; 96374; 99285; C9113; J1815; J1885; J2270; J2405; J7030; G0480

== ENCOUNTER 2019-08-29 15:23 | Inpatient (IN) | payer OTHER ==
[~2019-08-29] VITALS: Ht 177.8 cm; Wt 74.0 kg
[2019-08-29] MEDS ORDERED: FAMOTIDINE 20MG/2ML VIAL IV STA (15:46)
[2019-08-29] MEDS ORDERED: ONDANSETRON HCL 4MG/2ML INJ IV STA (15:46)
[2019-08-29] MEDS ORDERED: SODIUM CHLORIDE 0.9% 1,000 ML IV ONE (15:46)
[2019-08-29] MEDS ORDERED: MORPHINE SULFATE 4 MG/ML CPJ (NOT FOR IM USE) IV STA (15:46)
[2019-08-29 16:13] LABS: EOSINOPHILS % 1.7 % (0.0-5.0); HEMATOCRIT. 56.3 % (42.0-52.0); HEMOGLOBIN. 19.1 g/dL (14.0-18.0); LYMPHOCYTES % 38.1 % (20.0-50.0); MEAN CORPUSCULAR HEMOGLOBIN 29.8 pg (28.0-32.0); MEAN CORPUSCULAR VOLUME 87.8 fL (80.0-94.0); MEAN PLATELET VOLUME 8.8 fl (7.4-10.4); MONOCYTES % 13.4 % (2.0-8.0); NEUTROPHILS % 45.8 % (40.0-76.0); PLATELET 251 x1000/uL (130-400); RED BLOOD CELL COUNT 6.41 mill/uL (4.7-6.1)
[2019-08-29 16:14] LABS: PROTHROMBIN TIME 10.4 sec (9.6-11.0)
[2019-08-29 16:15] LABS: CHLORIDE 103 mEq/L (98-107)
[2019-08-29] MEDS ORDERED: SODIUM CHLORIDE 0.9% 1000ML BAG (SEPSIS BOLUS) IV ONE (16:30)
[2019-08-29 16:48] LABS: CLARITY URINE CLEAR (CLEAR); COLOR URINE YELLOW (YELLOW); KETONES URINE NEGATIVE (NEGATIVE); LEUKOCYTE ESTERASE URINE NEGATIVE (NEGATIVE); NITRITE URINE NEGATIVE (NEGATIVE); OCCULT BLOOD URINE NEGATIVE (NEGATIVE); PROTEIN URINE 2+ (NEGATIVE); SPECIFIC GRAVITY URINE 1.012 (1.005-1.030); UROBILINOGEN URINE 0.2 E.U./dL (0.2-1.0)
[2019-08-29] MEDS ORDERED: IOHEXOL-300 100 ML BOTTLE ONE (20:09)
[2019-08-29 22:38] VITALS: BP 146/72
[2019-08-30] MEDS: MORPHINE SULFATE 2 MG/ML CPJ (NOT FOR IM USE) IV PRN ×4 (00:30→19:14)
[2019-08-30] MEDS ORDERED: ONDANSETRON HCL 4MG/2ML INJ IV PRN (01:15)
[2019-08-30] MEDS ORDERED: DEXTROSE 50% WATER 50ML SYRINGE IV PRN (01:15)
[2019-08-30] MEDS ORDERED: IPRATROPIUM/ALBUTEROL 0.5-3(2.5)MG/3ML NEB HHN PRN (01:30)
[2019-08-30] MEDS ORDERED: DEXT 5%/0.45% NACL KCL 20MEQ/L 1,000 ML IV SCH (02:00)
[2019-08-30 04:00] VITALS: BP 135/60
[2019-08-30] MEDS: BLOOD SUGAR DIAGNOSTIC STRIP TEST SCH ×4 (06:28→21:14)
[2019-08-30 07:14] LABS: HEMATOCRIT 51.7 % (42.0-52.0); HEMOGLOBIN 17.4 g/dL (14.0-18.0); MEAN CORPUSCULAR HEMOGLOBIN 29.4 pg (28.0-32.0); MEAN CORPUSCULAR VOLUME 87.7 fL (80.0-94.0); PLATELET 215 x1000/uL (130-400); RED BLOOD CELL COUNT 5.89 mill/uL (4.7-6.1); RED CELL DISTRIBUTION WIDTH 13.9 % (11.6-14.6)
[2019-08-30 07:17] LABS: CHLORIDE 106 mEq/L (98-107)
[2019-08-30 07:45] LABS: AMYLASE 63 IU/L (25-115)
[2019-08-30 07:47] LABS: LDL CHOLESTEROL 73 mg/dL (5-100)
[2019-08-30 07:50] LABS: HDL CHOLESTEROL 36 mg/dL (40-59)
[2019-08-30 08:00] VITALS: BP 144/70
[2019-08-30 08:21] LABS: *AMPHETAMINES SCREEN URINE NEGATIVE (NEGATIVE); *BARBITURATES SCREEN URINE NEGATIVE (NEGATIVE); *BENZODIAZEPINES SCREEN URINE NEGATIVE (NEGATIVE); *COCAINE SCREEN URINE NEGATIVE (NEGATIVE); METHADONE URINE SCREEN NEGATIVE (NEGATIVE)
[2019-08-30 08:22] LABS: CANNABINOID URINE SCREEN PRESUMTIVE POSITIVE (NEGATIVE); OPIATES URINE SCREEN PRESUMTIVE POSITIVE (NEGATIVE); PHENCYCLIDINE URINE SCREEN NEGATIVE (NEGATIVE)
[2019-08-30] MEDS: INSULIN LISPRO 100 UNITS/ML SUBCUT SCH ×4 (08:29→21:14)
[2019-08-30] MEDS ORDERED: SALMETEROL INH SCH (09:00)
[2019-08-30] MEDS ORDERED: FLUTICASONE INH SCH (09:00)
[2019-08-30] MEDS ORDERED: PANTOPRAZOLE SODIUM 40 MG/VIAL IV SCH (09:00)
[2019-08-30] MEDS: BUDESONIDE 0.5MG/2ML NEB HHN SCH ×2 (09:38→20:57)
[2019-08-30] MEDS: ALBUTEROL (0.083%) 2.5MG/3ML NEB HHN SCH ×3 (09:39→20:57)
[2019-08-30] MEDS ORDERED: SODIUM CHLORIDE 0.9% 1,000 ML IV SCH (10:00)
[2019-08-30 12:00] VITALS: BP 122/73
[2019-08-30 20:07] VITALS: BP 134/80
[2019-08-30 20:46] VITALS: BP 134/80
== END 2019-08-30 22:45 | disposition short-term general hospital (02) | DRG 282 ==
LOC: ER 15:23 → 6WST 17:52 → EDBEDREQTM 17:54 → EDBEDREQ 17:54 → ENRESERV 21:41
PROVIDERS: ADMIT Internal Medicine; ATTEND Internal Medicine
DX: K85.90 Acute pancreatitis without necrosis or infection, unspecified (principal); K76.0 Fatty (change of) liver, not elsewhere classified; E11.9 Type 2 diabetes mellitus without complications; F17.210 Nicotine dependence, cigarettes, uncomplicated; I10 Essential (primary) hypertension; N32.89 Other specified disorders of bladder; N40.0 Benign prostatic hyperplasia without lower urinary tract symptoms; Z86.73 Personal history of transient ischemic attack (TIA), and cerebral infarction without residual deficits; Z79.899 Other long term (current) drug therapy; Z79.84 Long term (current) use of oral hypoglycemic drugs; Z71.6 Tobacco abuse counseling
CPT/HCPCS: 36415; 71045; 74177; 80048; 80061; 80305; 80320; 81003; 82150; 82962; 83036; 83605; 85027; 93005; 96361; 96374; 96375; 99291; C9113; J1815; J2270; J2405; J3490; J7030; J7040; J7611; J7620; J7626; Q9967; G0480

== ENCOUNTER 2019-12-14 01:04 | Emergency (ER) | payer OTHER ==
[~2019-12-14] VITALS: Ht 180.3 cm; Wt 77.0 kg
[~2019-12-14 01:04] MED LIST changes: -POLY119P2 MT
[2019-12-14] MEDS ORDERED: SODIUM CHLORIDE 0.9% 1,000 ML IV ONE (02:30)
[2019-12-14 03:02] LABS: CLARITY URINE CLEAR (CLEAR); COLOR URINE YELLOW (YELLOW); KETONES URINE TRACE (NEGATIVE); LEUKOCYTE ESTERASE URINE NEGATIVE (NEGATIVE); NITRITE URINE NEGATIVE (NEGATIVE); OCCULT BLOOD URINE NEGATIVE (NEGATIVE); PH URINE 5.5 (4.5-8.0); PROTEIN URINE 2+ (NEGATIVE); SPECIFIC GRAVITY URINE 1.037 (1.005-1.030)
[2019-12-14 03:07] LABS: CHLORIDE 104 mEq/L (98-107); EOSINOPHILS % 1.6 % (0.0-5.0); HEMATOCRIT. 51.5 % (42.0-52.0); HEMOGLOBIN. 17.5 g/dL (14.0-18.0); LYMPHOCYTES % 31.6 % (20.0-50.0); MEAN CORPUSCULAR HEMOGLOBIN 30.3 pg (28.0-32.0); MEAN CORPUSCULAR VOLUME 89.4 fL (80.0-94.0); MONOCYTES % 11.7 % (2.0-8.0); NEUTROPHILS % 54.1 % (40.0-76.0); PLATELET 210 x1000/uL (130-400); RED BLOOD CELL COUNT 5.77 mill/uL (4.7-6.1); RED CELL DISTRIBUTION WIDTH 14.3 % (11.6-14.6)
[2019-12-14 03:11] LABS: ETHANOL BLOOD < 10 mg/dL
[2019-12-14 03:24] LABS: *COCAINE SCREEN URINE NEGATIVE (NEGATIVE); CANNABINOID URINE SCREEN PRESUMTIVE POSITIVE (NEGATIVE); OPIATES URINE SCREEN NEGATIVE (NEGATIVE); PHENCYCLIDINE URINE SCREEN NEGATIVE (NEGATIVE)
[2019-12-14 03:25] LABS: *AMPHETAMINES SCREEN URINE NEGATIVE (NEGATIVE); *BARBITURATES SCREEN URINE NEGATIVE (NEGATIVE); *BENZODIAZEPINES SCREEN URINE NEGATIVE (NEGATIVE); METHADONE URINE SCREEN NEGATIVE (NEGATIVE)
[2019-12-14] MEDS ORDERED: SODIUM CHLORIDE 0.9% 1,000 ML IV NR (04:15)
[2019-12-14 04:30] VITALS: BP 157/73
[2019-12-14] MEDS ORDERED: HYDROCODONE/ACETAMINOPHEN 10/325MG TABLET PO ONE (04:45)
== END 2019-12-14 07:07 | disposition home or self-care (01) ==
LOC: ER 01:04
DX: K29.80 Duodenitis without bleeding (principal); E87.2 Acidosis; I10 Essential (primary) hypertension; E11.9 Type 2 diabetes mellitus without complications; F17.200 Nicotine dependence, unspecified, uncomplicated; Z79.899 Other long term (current) drug therapy; Z86.73 Personal history of transient ischemic attack (TIA), and cerebral infarction without residual deficits
CPT/HCPCS: 36415; 74176; 80053; 80305; 80320; 81003; 83605; 83690; 85025; 86850; 86900; 86901; 93005; 99285; J7030; G0480

== ENCOUNTER 2020-03-12 06:45 | Emergency (ER) | payer OTHER ==
[~2020-03-12] VITALS: Ht 180.3 cm; Wt 77.0 kg
[2020-03-12] MEDS ORDERED: ALBUTEROL 6.7GM HFA INHALER ORI ONE (07:30)
[2020-03-12 08:30] LABS: BASOPHILS % 0.7 % (0.0-2.0); EOSINOPHILS % 3.3 % (0.0-5.0); HEMOGLOBIN. 18.6 g/dL (14.0-18.0); LYMPHOCYTES % 22.9 % (20.0-50.0); MEAN CORPUSCULAR HEMOGLOBIN 29.8 pg (28.0-32.0); MEAN CORPUSCULAR VOLUME 89.7 fL (80.0-94.0); MEAN PLATELET VOLUME 9.7 fl (7.4-10.4); MONOCYTES % 9.7 % (2.0-8.0); NEUTROPHILS % 63.4 % (40.0-76.0); PLATELET 209 x1000/uL (130-400); RED BLOOD CELL COUNT 6.25 mill/uL (4.7-6.1); RED CELL DISTRIBUTION WIDTH 14.5 % (11.6-14.6)
[2020-03-12] MEDS ORDERED: NITROGLYCERIN OINT 1GM/INCH UDPKT TD ONE (08:30)
[2020-03-12] MEDS ORDERED: ASPIRIN 81MG TABLET PO ONE (08:30)
[2020-03-12] MEDS ORDERED: FUROSEMIDE 40MG/4ML VIAL IVP ONE (08:30)
[2020-03-12 08:36] LABS: CHLORIDE 108 mEq/L (98-107)
[2020-03-12 08:37] LABS: PROTHROMBIN TIME 10.7 sec (9.6-11.0)
[2020-03-12 08:54] LABS: CLARITY URINE CLEAR (CLEAR); COLOR URINE YELLOW (YELLOW); KETONES URINE NEGATIVE (NEGATIVE); LEUKOCYTE ESTERASE URINE NEGATIVE (NEGATIVE); NITRITE URINE NEGATIVE (NEGATIVE); OCCULT BLOOD URINE NEGATIVE (NEGATIVE); PH URINE 5.5 (4.5-8.0); PROTEIN URINE 3+ (NEGATIVE)
[2020-03-12] MEDS ORDERED: AZITHROMYCIN 500 MG in DEXT 5% WATER 250 ML IV SCH (09:00)
[2020-03-12] MEDS ORDERED: CEFTRIAXONE 1 G PREMIX 50 ML IV ONE (09:00)
[2020-03-12 10:27] LABS: D-DIMER 2.19 mg/L FEU (<0.50)
[2020-03-12 10:29] LABS: C REACTIVE PROTEIN QUANT 3.5 mg/L (0.0-3.0)
[2020-03-12 11:12] VITALS: BP 139/68
== END 2020-03-12 11:13 | disposition left against medical advice (07) ==
LOC: ER 06:45
DX: J18.9 Pneumonia, unspecified organism (principal); J44.9 Chronic obstructive pulmonary disease, unspecified; I63.9 Cerebral infarction, unspecified; I10 Essential (primary) hypertension; E11.9 Type 2 diabetes mellitus without complications; E78.00 Pure hypercholesterolemia, unspecified; F17.200 Nicotine dependence, unspecified, uncomplicated; Z79.899 Other long term (current) drug therapy; Z20.828 Contact with and (suspected) exposure to other viral communicable diseases
CPT/HCPCS: 36415; 71045; 80053; 81003; 82728; 83605; 83615; 83880; 84145; 84484; 85025; 85379; 85384; 85610; 86140; 87040; 96365; 96367; 96375; 99285; J0456; J0696; J1940; J7060; U0003; Z7610

== ENCOUNTER 2020-12-31 21:43 | Inpatient (IN) | payer OTHER ==
[~2020-12-31] VITALS: Ht 180.3 cm; Wt 75.7 kg
[~2020-12-31 21:43] MED LIST changes: +CLOP-31 MT; -CLOP75TA4 MT; +LEVO500T2 MT; -METO-385 MT
[2020-12-31] MEDS ORDERED: METHYLPREDNISOLONE SOD SUCC 125 MG/2 ML VIAL IV STA (22:06)
[2020-12-31] MEDS ORDERED: IPRATROPIUM BROMIDE (0.02%) 0.5MG/2.5ML NEB HHN STA (22:06)
[2020-12-31] MEDS ORDERED: MAGNESIUM 2 G PREMIX 50 ML IV ONE (22:15)
[2020-12-31] MEDS: ALBUTEROL (0.083%) 2.5MG/3ML NEB HHN SCH ×3 (22:26→23:42)
[2020-12-31 22:46] LABS: BASOPHILS % 0.9 % (0.0-2.0); EOSINOPHILS % 3.7 % (0.0-5.0); HEMOGLOBIN. 16.7 g/dL (14.0-18.0); LYMPHOCYTES % 29.3 % (20.0-50.0); MEAN CORPUSCULAR HEMOGLOBIN 29.7 pg (28.0-32.0); MEAN CORPUSCULAR VOLUME 90.9 fL (80.0-94.0); MEAN PLATELET VOLUME 9.2 fl (7.4-10.4); MONOCYTES % 13.7 % (2.0-8.0); NEUTROPHILS % 52.4 % (40.0-76.0); PLATELET 213 x1000/uL (130-400); RED BLOOD CELL COUNT 5.61 mill/uL (4.7-6.1); RED CELL DISTRIBUTION WIDTH 15.8 % (11.6-14.6)
[2020-12-31 22:50] LABS: CHLORIDE 109 mEq/L (98-107)
[2020-12-31] MEDS ORDERED: ENOXAPARIN 80MG/0.8ML SYR SUBCUT ONE (23:45)
[2021-01-01] MEDS ORDERED: IOHEXOL-350 100 ML BOTTLE ONE (00:03)
[2021-01-01 08:30] VITALS: BP 146/74
[2021-01-01] MEDS ORDERED: ONDANSETRON HCL 4MG/2ML INJ IV PRN (09:45)
[2021-01-01] MEDS ORDERED: DEXTROSE 50% WATER 50ML SYRINGE IV PRN (09:45)
[2021-01-01] MEDS ORDERED: ALBUTEROL 6.7GM HFA INHALER ORI PRN (09:45)
[2021-01-01] MEDS ORDERED: FUROSEMIDE 40MG/4ML VIAL IVP NR (09:45)
[2021-01-01] MEDS ORDERED: ACETAMINOPHEN 325MG TABLET PO PRN (09:45)
[2021-01-01] MEDS: LEVOFLOXACIN 500MG TABLET PO SCH (10:26)
[2021-01-01] MEDS: ENOXAPARIN 40MG/0.4ML SYR SUBCUT SCH (10:26)
[2021-01-01 12:00] VITALS: BP 118/76
[2021-01-01] MEDS: BLOOD SUGAR DIAGNOSTIC STRIP TEST SCH ×3 (12:36→20:42)
[2021-01-01] MEDS: INSULIN LISPRO 100 UNITS/ML SUBCUT SCH ×3 (13:35→20:51)
[2021-01-01] MEDS: NICOTINE 14MG PATCH TD SCH (14:00)
[2021-01-01] MEDS: HYDROCODONE/ACETAMINOPHEN 5/325MG TABLET PO PRN (14:50)
[2021-01-01 14:54] LABS: *AMPHETAMINES SCREEN URINE NEGATIVE (NEGATIVE); *BARBITURATES SCREEN URINE NEGATIVE (NEGATIVE); *BENZODIAZEPINES SCREEN URINE NEGATIVE (NEGATIVE); *COCAINE SCREEN URINE NEGATIVE (NEGATIVE); CANNABINOID URINE SCREEN NEGATIVE (NEGATIVE); METHADONE URINE SCREEN NEGATIVE (NEGATIVE); OPIATES URINE SCREEN NEGATIVE (NEGATIVE); PHENCYCLIDINE URINE SCREEN NEGATIVE (NEGATIVE)
[2021-01-01] MEDS ORDERED: INSULIN GLARGINE UD 100 UNITS/ML SYR SUBCUT SCH (15:00)
[2021-01-01 16:00] VITALS: BP 135/77
[2021-01-01] MEDS: FUROSEMIDE 40MG/4ML VIAL IVP SCH (16:21)
[2021-01-01 20:00] VITALS: BP 138/76
[2021-01-01] MEDS: INSULIN GLARGINE UD 100 UNITS/ML SYR SUBCUT SCH (20:50)
[2021-01-02] VITALS: BP 140/73
[2021-01-02 04:00] VITALS: BP 136/73
[2021-01-02] MEDS: FUROSEMIDE 40MG/4ML VIAL IVP SCH ×2 (06:18→17:11)
[2021-01-02] MEDS: BLOOD SUGAR DIAGNOSTIC STRIP TEST SCH ×4 (06:18→20:22)
[2021-01-02] MEDS: INSULIN LISPRO 100 UNITS/ML SUBCUT SCH ×4 (07:14→20:26)
[2021-01-02 08:00] VITALS: BP 124/74
[2021-01-02] MEDS: NICOTINE 14MG PATCH TD SCH ×2 (08:03→08:05)
[2021-01-02] MEDS: ENOXAPARIN 40MG/0.4ML SYR SUBCUT SCH (08:03)
[2021-01-02] MEDS ORDERED: LIDOCAINE HCL/PF 1% 2ML VIAL ONE (09:00)
[2021-01-02 09:28] LABS: BG BASE EXCESS 5.3 mmol/L (-2.0-2.0); BG CARBOXYHEMOGLOBIN 0.1 % (0.5-1.5); BG DEOXYHEMOGLOBIN 5.6 % (0.0-5.0); BG FRACTION INSPIRED OXYGEN 21; BG HCO3 ACT 30.2 mmol/L (22.0-26.0); BG METHEMOGLOBIN 0.3 % (0.0-1.5); BG OXYGEN SATURATION 94.4 % (92.0-98.5); BG PCO2 44.4 mmHg (35.0-45.0); BG PH 7.451 (7.350-7.450); BG PO2 66.6 mmHg (75.0-100.0); BG SAMPLE SITE RIGHT BRACHIAL; BG VENT MODE ROOM AIR
[2021-01-02 10:30] LABS: *AMPHETAMINES SCREEN URINE NEGATIVE (NEGATIVE); *BENZODIAZEPINES SCREEN URINE NEGATIVE (NEGATIVE); *COCAINE SCREEN URINE NEGATIVE (NEGATIVE); METHADONE URINE SCREEN NEGATIVE (NEGATIVE); OPIATES URINE SCREEN NEGATIVE (NEGATIVE)
[2021-01-02 10:31] LABS: CANNABINOID URINE SCREEN NEGATIVE (NEGATIVE); PHENCYCLIDINE URINE SCREEN NEGATIVE (NEGATIVE)
[2021-01-02 10:32] LABS: *BARBITURATES SCREEN URINE NEGATIVE (NEGATIVE)
[2021-01-02 12:00] VITALS: BP 83/41
[2021-01-02 12:16] LABS: INR 1.1
[2021-01-02] MEDS: LEVOFLOXACIN 500MG TABLET PO SCH (12:24)
[2021-01-02] MEDS: INSULIN GLARGINE UD 100 UNITS/ML SYR SUBCUT SCH ×2 (12:25→20:26)
[2021-01-02 16:00] VITALS: BP 142/65
[2021-01-02] MEDS: HYDROCODONE/ACETAMINOPHEN 5/325MG TABLET PO PRN (17:26)
[2021-01-02 20:00] VITALS: BP 127/73
[2021-01-03] VITALS: BP 138/81
[2021-01-03 00:01] VITALS: BP 118/72
[2021-01-03 04:00] VITALS: BP 136/70
[2021-01-03] MEDS: FUROSEMIDE 40MG/4ML VIAL IVP SCH ×2 (05:39→15:37)
[2021-01-03] MEDS: BLOOD SUGAR DIAGNOSTIC STRIP TEST SCH ×4 (05:43→21:38)
[2021-01-03] MEDS: INSULIN LISPRO 100 UNITS/ML SUBCUT SCH ×4 (05:46→21:42)
[2021-01-03 06:51] LABS: BASOPHILS % 0.9 % (0.0-2.0); EOSINOPHILS % 2.1 % (0.0-5.0); HEMATOCRIT. 56.5 % (42.0-52.0); HEMOGLOBIN. 18.9 g/dL (14.0-18.0); LYMPHOCYTES % 24.5 % (20.0-50.0); MEAN CORPUSCULAR HEMOGLOBIN 30.5 pg (28.0-32.0); MEAN CORPUSCULAR VOLUME 91.1 fL (80.0-94.0); MEAN PLATELET VOLUME 8.8 fl (7.4-10.4); NEUTROPHILS % 63.5 % (40.0-76.0); PLATELET 237 x1000/uL (130-400); RED BLOOD CELL COUNT 6.21 mill/uL (4.7-6.1); RED CELL DISTRIBUTION WIDTH 15.6 % (11.6-14.6)
[2021-01-03 07:37] LABS: CHLORIDE 96 mEq/L (98-107)
[2021-01-03 08:00] VITALS: BP 116/73
[2021-01-03] MEDS: ENOXAPARIN 40MG/0.4ML SYR SUBCUT SCH (08:49)
[2021-01-03] MEDS: NICOTINE 14MG PATCH TD SCH (08:50)
[2021-01-03] MEDS: INSULIN GLARGINE UD 100 UNITS/ML SYR SUBCUT SCH ×2 (08:51→21:42)
[2021-01-03] MEDS: LEVOFLOXACIN 500MG TABLET PO SCH (08:51)
[2021-01-03] MEDS: HYDROCODONE/ACETAMINOPHEN 5/325MG TABLET PO PRN (15:37)
[2021-01-03 16:00] VITALS: BP 143/82
[2021-01-03 20:30] VITALS: BP 134/80
[2021-01-04] VITALS: BP 138/81
[2021-01-04 04:00] VITALS: BP 134/74
[2021-01-04] MEDS: BLOOD SUGAR DIAGNOSTIC STRIP TEST SCH ×2 (06:27→11:38)
[2021-01-04] MEDS: INSULIN LISPRO 100 UNITS/ML SUBCUT SCH ×2 (06:27→12:49)
[2021-01-04] MEDS: FUROSEMIDE 40MG/4ML VIAL IVP SCH (06:27)
[2021-01-04 06:50] LABS: HEMATOCRIT. 55.6 % (42.0-52.0); HEMOGLOBIN. 18.3 g/dL (14.0-18.0); MEAN CORPUSCULAR VOLUME 91.4 fL (80.0-94.0); MEAN PLATELET VOLUME 8.9 fl (7.4-10.4); PLATELET 212 x1000/uL (130-400); RED BLOOD CELL COUNT 6.08 mill/uL (4.7-6.1); RED CELL DISTRIBUTION WIDTH 15.2 % (11.6-14.6)
[2021-01-04 08:00] VITALS: BP 113/68
[2021-01-04 09:33] LABS: CHLORIDE 97 mEq/L (98-107)
[2021-01-04] MEDS: ENOXAPARIN 40MG/0.4ML SYR SUBCUT SCH (09:37)
[2021-01-04] MEDS: NICOTINE 14MG PATCH TD SCH (09:37)
[2021-01-04 09:41] LABS: HDL CHOLESTEROL 63 mg/dL (40-59); LDL CHOLESTEROL 123 mg/dL (5-100)
[2021-01-04] MEDS: INSULIN GLARGINE UD 100 UNITS/ML SYR SUBCUT SCH (09:45)
[2021-01-04] MEDS: LEVOFLOXACIN 500MG TABLET PO SCH (11:23)
[2021-01-04 12:40] VITALS: BP 133/68
[2021-01-04 14:37] LABS: PLATELET ESTIMATE NORMAL
== END 2021-01-04 15:50 | disposition home or self-care (01) | DRG 194 ==
LOC: ER 21:43 → 7WST 01-01 03:16 → EDBEDREQTM 01-01 03:24 → EDBEDREQ 01-01 03:24 → ENRESERV 01-01 07:37 → 7WST 01-01 08:30 → 6WST 01-03 20:42
PROVIDERS: ADMIT Internal Medicine; ATTEND Internal Medicine
DX: I11.0 Hypertensive heart disease with heart failure (principal); J96.01 Acute respiratory failure with hypoxia; J44.1 Chronic obstructive pulmonary disease with (acute) exacerbation; I50.43 Acute on chronic combined systolic (congestive) and diastolic (congestive) heart failure; E43 Unspecified severe protein-calorie malnutrition; E11.9 Type 2 diabetes mellitus without complications; E87.8 Other disorders of electrolyte and fluid balance, not elsewhere classified; F12.90 Cannabis use, unspecified, uncomplicated; F17.210 Nicotine dependence, cigarettes, uncomplicated; I25.10 Atherosclerotic heart disease of native coronary artery without angina pectoris; I27.29 Other secondary pulmonary hypertension; R74.01 Elevation of levels of liver transaminase levels; Z20.822 Contact with and (suspected) exposure to COVID-19; I69.351 Hemiplegia and hemiparesis following cerebral infarction affecting right dominant side; Z86.718 Personal history of other venous thrombosis and embolism; Z88.0 Allergy status to penicillin; Z79.84 Long term (current) use of oral hypoglycemic drugs; Z79.899 Other long term (current) drug therapy; Z68.23 Body mass index [BMI] 23.0-23.9, adult; Z71.6 Tobacco abuse counseling
CPT/HCPCS: 36415; 36600; 71045; 71275; 80048; 80053; 80061; 80305; 82375; 82805; 82962; 83880; 84484; 85025; 87426; 93005; 93306; 93970; 94640; 99291; J1650; J1815; J1940; J2930; J3475; J3490; Q9967; U0003